=== PATIENT | male | born 1970 | race African-American/Black ===

== ENCOUNTER 2018-01-20 08:08 | Emergency (ER) | payer BC | END 2018-01-20 08:57 | disposition home or self-care (01) | LOC: SCSER 08:08 | DX: J06.9 Acute upper respiratory infection, unspecified (principal); E11.9 Type 2 diabetes mellitus without complications; E78.5 Hyperlipidemia, unspecified; I10 Essential (primary) hypertension | CPT/HCPCS: 99283 ==

== ENCOUNTER 2018-08-30 10:26 | Outpatient (CLI) | payer BC ==
--- NOTE | 2018-08-30 11:00 | RAD ---
FXR Lumbar Spine 2 Or 3 View History: Back pain for a couple weeks. Comparison: None. Findings: The vertebral bodies are normal in height are osteophytic changes without significant disc narrowing. Pedicles are intact. Impression: Mild arthritic changes of the spine
== END 2018-08-30 10:27 | disposition home or self-care (01) ==
LOC: SCSRAD 10:26
PROVIDERS: ATTEND Nurse Practitioner Family
DX: M54.5 Low back pain (principal); M47.816 Spondylosis without myelopathy or radiculopathy, lumbar region
CPT/HCPCS: 72100